=== PATIENT | female | born 1990 | race Caucasian/White ===

== ENCOUNTER → 2018-03-30 10:31 | Outpatient (CLI) | payer OTHER, BC, SELFPAY ==
[2018-03-30 10:43] LABS: Adenovirus F 40/41, stool Not Detected (NotDetected); Astrovirus Not Detected (NotDetected); Campylobacter Not Detected (NotDetected); Clostridium Difficile A/B, PCR Not Detected (NotDetected); Cyclospora Cayetanesis Not Detected (NotDetected); Entamoeba histolytica Not Detected (NotDetected); Enteroaggregative E coli Not Detected (NotDetected); Enteropathogenic E coli Not Detected (NotDetected); Enterotoxigenic E coli Not Detected (NotDetected); Giardia lamblia Not Detected (NotDetected); Norovirus Not Detected (NotDetected); Plesimonas Shigalloides, PCR Not Detected (NotDetected); Rotavirus A Not Detected (NotDetected); Salmonella, PCR Not Detected (NotDetected); Sapovirus Not Detected (NotDetected); Shiga-like toxin E coli Not Detected (NotDetected); Shigella Enterovasive E coli Not Detected (NotDetected); Vibrio Cholerae Not Detected (NotDetected); Vibrio, PCR Not Detected (NotDetected); Yersinia Entercolitica, PCR Not Detected (NotDetected)
[2018-03-30 15:33] LABS: Cryptosporidium Detected (NotDetected)
== END ==
PROVIDERS: Visit Provider Physician Assistant
DX: R19.7 Diarrhea, unspecified (principal)
CPT/HCPCS: 87507

== ENCOUNTER → 2019-03-11 12:35 | Outpatient (CLI) | payer OTHER, SELFPAY ==
--- NOTE | 2019-03-11 12:40 | MM_ITS ---
MM Dig mamm DX unilat RT CAD, US breast RT complete INDICATION: Palpable abnormality in right breast ORDERING PHYSICIAN: Nannette Gomez PATIENT AGE: 28 years COMPARISON: None TECHNIQUE: Diagnostic right mammogram along with right breast ultrasound FINDINGS: There is heterogeneous dense fibroglandular tissue. No malignant appearing mass or malignant. Microcalcification. There is asymmetry in the retroareolar region slightly lateral. This is not confirmed on the orthogonal view and may be due to overlapping fibroglandular tissue. Right breast ultrasound: No cystic or solid lesions evident. Specifically, no abnormalities apparent in the region of palpable concern IMPRESSION: No discrete nodule. No evidence of malignancy. Correlation with physical exam is needed in this patient with dense breast tissue. Any palpable nodule should be managed on a clinical basis. Recommend 6 month follow-up regarding asymmetric density in the retroareolar region BI-RADS Category: 3 Probably Benign Finding Short Term Follow-up RECOMMENDED FOLLOW-UP: 6M - 6 MONTH FOLLOW-UP (A letter has been sent to the patient regarding results of the study.)
== END ==
PROVIDERS: PCP Nurse Practitioner Family; Visit Provider Nurse Practitioner Family
DX: N63.12 Unspecified lump in the right breast, upper inner quadrant (principal)
CPT/HCPCS: 76641; 77065

== ENCOUNTER 2020-02-10 13:02 | Emergency (ER) | payer OTHER, SELFPAY ==
[2020-02-10 13:16] VITALS: BP 148/96; PULSE 74; RESP 16; TEMP 37.8; O2SAT 99; BMI 33.2
[2020-02-10 13:24] LABS: UTC Strep Screen (Rapid) Negative (Negative)
--- NOTE | 2020-02-10 13:42 | HMH.EDUTC ---
[facility] Clinical Impression: Viral syndrome Disposition: Home, Self-Care Condition on Discharge: Good Instructions: Sore Throat, Diarrhea, Loperamide, Preventing the Spread of Coronavirus Discharge Instructions Additional Instructions: *Monitor Temp, Over the counter Motrin or Tylenol as directed/as needed Tylenol every 4 hours and Motrin every 6 hours (as long as your family doctor has told you that you can take it) for fever or pain. and straight to ER if unable to lower temp less than 101.0 after medication given *Warm salt water gargles may help to soothe the throat *Throat Lozenges *Warm fluids *Sleep elevated *Humidifier/Vaporizer *Flonase 2 sprays in each nostril daily but be aware that it may take 2-3 days before you notice improvement You was given a card with instructions for quarantine go home and self quarantine until test results back and negative Your throat swab was sent for culture. Those results are typically sent to your primary care. Be sure to follow up in 2-3 days with your family doctor/primary care physician if no improvement so they can review those result and treat if necessary. If you don?t have a primary care doctor, I recommend you get one but in the mean time, you will have to return to a walk in clinic Follow up IMMEDIATELY for new or worsening symptoms or no Noticeable improvement over the next 48-72 hours. 911 for difficulty breathing or swallowing Referrals: Provider,Referral, [Primary Care Provider] - As needed Time of Disposition: 13:58 Medical Decision Making - Alvin Inquiry Pt receiving controlled substance: No Alvin was queried for this patient: No Vital Signs: 02/10/20 13:16 02/10/20 14:04 Temperature 100.0 F H 99.9 F H Temperature Source Oral Oral Pulse Rate 78 Pulse Rate [Right Brachial] 74 Respiratory Rate 16 16 Blood Pressure 138/70 Blood Pressure [Right Arm] 148/96 H Blood Pressure Mean [Right Arm] 113 Blood Pressure Source Automatic Cuff Blood Pressure Source [Right Arm] Automatic Cuff Blood Pressure Position Sitting Blood Pressure Position [Right Arm] Sitting 02 Sat by Pulse Oximetry 99 Oxygen Delivery Method Room Air Room Air - Lab Data Lab results reviewed: Yes: I reviewed the patient's lab results. Lab Results 02/10/20 13:11: Strep Scn Rapid Clinic Negative Orders (Tests/Meds): ORDERS Category Date Time Status SARS-CoV-2, DAVID Stat Lab 02/10/20 13:55 Received Strep Screen Confirmation Stat Micro 02/10/20 13:11 Received - Reevaluation(s) Time: 13:52 Reevaluation #1: Rapid strep negative patient requesting to be tested for Covid19 due to symptoms, Denies known exposure to COVID19 [facility] [place] - General Stated complaint: sore throat Time Seen by Provider: 02/10/20 13:42 Mode of Arrival: Ambulatory Source of Information: Patient Limitations: No Limitations Description of Symptoms (Recalled from Triage Doc. by RN): Pt c/o sore throat and diarrhea since Friday HEENT Symptoms (Recalled from RN notes): No Resp Symptoms (Recalled from RN notes): No Skin Symptoms (Recalled from RN notes): No MS Symptoms (Recalled from RN notes): No Functional Status (Recalled from RN notes): na - History of Present Illness Provider Complaint: Patient states that she has been having sore throat for about a week and thought it may have been from her GERD States that over the weekend she had some diarrhea and vomiting States that she has still been having some fever, body aches, sore throat and diarrhea States that no longer having vomiting so she wanted to get checked for strep and COVID19 - Related Data Home Medications Medication Instructions Recorded Confirmed No Known Home Medications 02/10/20 02/10/20 Allergies Allergy/AdvReac Type Severity Reaction Status Date / Time prednisone Allergy Severe steroid Verified 02/10/20 13:23 induced pychosis - Worker's Comp Is this a Worker's Comp case?: No HM
[2020-02-10 14:04] VITALS: BP 138/70; PULSE 78; RESP 16; TEMP 37.7; O2SAT 98
[2020-02-12 07:30] LABS: Covid-19 Nasal PCR Sendout Lex Not Detected
--- NOTE | 2020-02-12 07:53 | PC.NURSE ---
Pt notified of negative COVID-19 swab at this time
== END 2020-02-10 14:04 | disposition home or self-care (01) ==
PROVIDERS: Emergency Provider Nurse Practitioner
DX: B34.9 Viral infection, unspecified (principal); Z87.891 Personal history of nicotine dependence
CPT/HCPCS: 87880; 99201; 99202; U0004

== ENCOUNTER → 2020-02-12 10:14 | Outpatient (CLI) | payer OTHER, SELFPAY ==
[2020-02-12 10:33] LABS: Adenovirus F 40/41, stool Not Detected (NotDetected); Astrovirus Not Detected (NotDetected); Campylobacter Not Detected (NotDetected); Clostridium Difficile A/B, PCR Not Detected (NotDetected); Cryptosporidium Not Detected (NotDetected); Cyclospora Cayetanesis Not Detected (NotDetected); Entamoeba histolytica Not Detected (NotDetected); Enteroaggregative E coli Not Detected (NotDetected); Enteropathogenic E coli Not Detected (NotDetected); Enterotoxigenic E coli Not Detected (NotDetected); Giardia lamblia Not Detected (NotDetected); Norovirus Not Detected (NotDetected); Plesimonas Shigalloides, PCR Not Detected (NotDetected); Rotavirus A Not Detected (NotDetected); Salmonella, PCR Not Detected (NotDetected); Sapovirus Not Detected (NotDetected); Shiga-like toxin E coli Not Detected (NotDetected); Shigella Enterovasive E coli Not Detected (NotDetected); Vibrio Cholerae Not Detected (NotDetected); Vibrio, PCR Not Detected (NotDetected); Yersinia Entercolitica, PCR Not Detected (NotDetected)
== END ==
PROVIDERS: Visit Provider Nurse Practitioner
DX: R19.7 Diarrhea, unspecified (principal)
CPT/HCPCS: 87507

== ENCOUNTER → 2020-03-01 13:56 | Outpatient (CLI) | payer OTHER, SELFPAY ==
[2020-03-02 16:22] LABS: Giardia lamblia Ag, EIA Negative (Negative)
== END ==
PROVIDERS: Visit Provider Nurse Practitioner Family
DX: R19.7 Diarrhea, unspecified (principal)
CPT/HCPCS: 87205; 87324; 87493

== ENCOUNTER → 2020-03-08 13:26 | Outpatient (CLI) | payer OTHER, SELFPAY ==
--- NOTE | 2020-03-08 13:31 | US_ITS ---
PROCEDURE: US THYROID CLINICAL INDICATION: THYROMEGALY COMPARISON: No exams were available for comparison FINDINGS: Right lobe: 3.9 x 1.7 x 1.6 cm with homogeneous echogenicity Left lobe: 4.1 x 1.7 x 1.4 cm. There is a mostly cystic nodule in the upper pole at 12 x 7 mm Isthmus: Additional findings: IMPRESSION: TR 2 nodule on the left not suspicious. Otherwise negative thyroid ultrasound. Consider yearly follow-up Dictated by: Abran Santos MD 03/09/2020 17:52 Electronically signed by Abran Santos MD in [place] 03/09/2020 17:52
== END ==
PROVIDERS: PCP Nurse Practitioner Family; Visit Provider Nurse Practitioner Family
DX: E01.0 Iodine-deficiency related diffuse (endemic) goiter (principal)
CPT/HCPCS: 76536

== ENCOUNTER → 2021-04-27 12:36 | Outpatient (CLI) | payer OTHER, SELFPAY ==
[2021-04-27 13:02] LABS: Adenovirus,PCR Not Detected (NotDetected); Bordetella Pertussis Not Detected (NotDetected); Chlamydophila Pneumoniae, PCR Not Detected (NotDetected); Coronavirus 229E Not Detected (NotDetected); Coronavirus NL63 Not Detected (NotDetected); Coronavirus OC43 Not Detected (NotDetected); Coronovirus HKU1,PCR Not Detected (NotDetected); Human Metapneumovirus Not Detected (NotDetected); Influenza A, PCR Not Detected (NotDetected); Influenza AH1, 2009 Not Detected (NotDetected); Influenza AH1, PCR Not Detected (NotDetected); Influenza AH3,PCR Not Detected (NotDetected); Influenza B, PCR Not Detected (NotDetected); Mycoplasma Pneumoniae, PCR Not Detected (NotDetected); Parainfluenza 1, PCR Not Detected (NotDetected); Parainfluenza 2, PCR Not Detected (NotDetected); Parainfluenza 3, PCR Not Detected (NotDetected); Parainfluenza 4, PCR Not Detected (NotDetected); Respiratory Syncytial Virus Not Detected (NotDetected); Rhinovirus/Enterovirus Not Detected (NotDetected)
[2021-04-27 13:29] LABS: Coronavirus 19, PCR Detected (NotDetected)
== END ==
PROVIDERS: Visit Provider Nurse Practitioner Family
DX: Z20.822 Contact with and (suspected) exposure to COVID-19 (principal); U07.1 COVID-19
CPT/HCPCS: 87486; 87581; 87633; 87798; U0003

== ENCOUNTER → 2021-07-18 14:27 | Outpatient (CLI) | payer OTHER, SELFPAY ==
--- NOTE | 2021-07-18 14:33 | US_ITS ---
PROCEDURE: US THYROID CLINICAL INDICATION: THYROMEGALY COMPARISON: US US THYROID from 03/08/2020 FINDINGS: Right lobe: Normal echotexture and vascularity, measuring 1.6 x 3.9 x 1.7 cm. No nodules. Left lobe: Normal echotexture and vascularity, measuring 1.5 x 4.3 x 1.7 cm. Single spongiform nodule measuring 7 millimeters. Isthmus: Normal echotexture. Additional findings: None IMPRESSION: According to the ACR thyroid Imaging reporting and data System (ACR TI-RADS), predominantly spongiform nodules are inherently benign. TR1 = benign. Dictated by: Delicia Morgan MD 07/18/2021 16:45 Delicia Morgan MD in [place] 07/18/2021 16:45
== END ==
PROVIDERS: PCP Nurse Practitioner Family; Visit Provider Nurse Practitioner Family
DX: E01.0 Iodine-deficiency related diffuse (endemic) goiter (principal)
CPT/HCPCS: 76536

== ENCOUNTER → 2022-01-10 07:54 | Outpatient (CLI) | payer OTHER, SELFPAY ==
--- NOTE | 2022-01-10 07:57 | US_ITS ---
FINAL REPORT CLINICAL HISTORY: pulse in abd FINDINGS: Sonographic images were obtained of the abdominal aorta. The abdominal aorta measures up to 1.2 cm in greatest dimensions. The common iliac arteries are within normal limits. IMPRESSION: No evidence of abdominal aortic aneurysm. Reviewed, Interpreted and Dictated by Giuliano Jay III, MD Transcribed by Carlton Bearden Authenticated by Giuliano Jay III, MD on 01/10/2022 10:26:38 AM [facility]
== END ==
LOC: RAD 07:55
PROVIDERS: PCP Nurse Practitioner Family; Visit Provider Physician Assistant
DX: R09.89 Other specified symptoms and signs involving the circulatory and respiratory systems (principal)
CPT/HCPCS: 76705

== ENCOUNTER → 2022-02-05 15:47 | Outpatient (CLI) | payer OTHER, SELFPAY | PROVIDERS: PCP Physician Assistant; Visit Provider Physician Assistant | DX: J02.9 Acute pharyngitis, unspecified (principal) | CPT/HCPCS: 87070 ==

== ENCOUNTER → 2022-03-27 13:58 | Outpatient (CLI) | payer OTHER, SELFPAY | LOC: LAB.DROPOF 13:58 | PROVIDERS: PCP Physician Assistant; Visit Provider Physician Assistant | DX: R82.90 Unspecified abnormal findings in urine (principal); B96.20 Unspecified Escherichia coli [E. coli] as the cause of diseases classified elsewhere | CPT/HCPCS: 87086; 87088; 87186 ==

== ENCOUNTER → 2022-08-19 11:51 | Outpatient (CLI) | payer OTHER, SELFPAY ==
[2022-08-19 13:50] LABS: Basophils # 0.1 K/mm3 (0-0.2); Basophils % 0.9 % (0.1-2.0); Eosinophils # 0.2 K/mm3 (0.0-0.4); Eosinophils % 3.6 % (0.1-12.0); Hematocrit 42.7 % (37.0-47.0); Hemoglobin 13.7 g/dL (12.2-16.2); Lymphocytes # 1.5 K/mm3 (0.7-4.5); Lymphocytes % 24.4 % (10-50); Mean Corpuscular Hemoglobin 30.7 pg (27.0-31.2); Mean Corpuscular Volume 96.1 fl (81-99); Mean Platelet Volume 8.8 fl (7.4-10.4); Monocytes # 0.3 K/mm3 (0.1-1.0); Monocytes % 4.2 % (1.7-9.3); Neutrophils # 4.1 K/mm3 (1.8-7.8); Neutrophils % 66.8 % (37.0-80.0); Platelet Count 343 K/mm3 (142-424); Red Blood Count 4.45 M/mm3 (4.20-5.40); Red Cell Distribution Width 12.8 % (11.5-17.5); White Blood Count 6.2 K/mm3 (4.8-10.8)
[2022-08-19 13:51] LABS: Alanine Aminotransferase 18 U/L (12-78); Albumin Level 4.9 g/dl (3.5-5.0); Albumin/Globulin Ratio 2.1 (1.1-1.8); Alkaline Phosphatase 114 U/L (38-126); Anion Gap 19.2 mEq/L (5-15); Aspartate Amino Transferase 29 U/L (14-36); Bilirubin,Total 0.3 mg/dl (0.2-1.3); Blood Urea Nitrogen 22 mg/dl (7-17); Calcium 9.9 mg/dl (8.4-10.2); Carbon Dioxide 27 mmol/L (22.0-30.0); Chloride 95 mmol/L (98-107); Chol/HDL Ratio 2.9 (1-3.5); Cholesterol 160 mg/dl (140-200); Estimated Glomerular Filt Rate 98 ml/min (>60); GFR (African American) 119 ML/MIN (>60); Globulin 2.3 g/dL (1.3-3.2); Glucose 80 mg/dl (74-100); HDL Cholesterol 56 mg/dl (40-60); Potassium 4.2 mmoL/L (3.5-5.1); Sodium 137 mmol/L (136-145); Total Protein,Serum 7.2 g/dl (6.3-8.2); Triglycerides 63 mg/dl (30-150); VLDL Cholesterol 13 mg/dL (0-40)
[2022-08-19 14:02] LABS: Monoscreen (Rapid) Negative (Negative)
[2022-08-19 14:03] LABS: C-Reactive Protein 0.5 mg/L (0-4); Direct LDL Cholesterol 91.42 mg/dL (100-129)
[2022-08-19 14:20] LABS: Erythrocyte Sedimentation Rate 7 mm/hr (0-20)
[2022-08-19 14:23] LABS: Thyroid Stimulating Hormone 1.64 uIU/mL (0.465-4.68)
[2022-08-19 14:43] LABS: Vitamin B12 500 pg/mL (239-931)
[2022-08-20 11:14] LABS: RA Latex Turbid. <10.0 IU/mL (<14.0)
[2022-08-20 14:19] LABS: Anti-Centromere B Antibodies <0.2 AI (0.0-0.9); Anti-DNA (DS) Ab Qn 1 IU/mL (0-9); Anti-Jo-1 <0.2 AI (0.0-0.9); Anti-Smith Antibody <0.2 AI (0.0-0.9); Antichromatin Antibodies <0.2 AI (0.0-0.9); Antiscleroderma-70 Antibodies <0.2 AI (0.0-0.9); EBV Ab VCA, IgG >600.0 U/mL (0.0-17.9); EBV Ab VCA, IgM <36.0 U/mL (0.0-35.9); EBV Nuclear Antigen Ab, IgG >600.0 U/mL (0.0-17.9); RNP Antibodies 0.4 AI (0.0-0.9); Sjogren's Anti-SS-A <0.2 AI (0.0-0.9); Sjogren's Anti-SS-B <0.2 AI (0.0-0.9)
[2022-08-21 23:13] LABS: Anti-Cyclic Citrullinated Pept 4 units (0-19)
== END ==
LOC: LAB.DROPOF 13:44
PROVIDERS: PCP Physician Assistant; Visit Provider Physician Assistant
DX: R59.1 Generalized enlarged lymph nodes (principal)
CPT/HCPCS: 80053; 80061; 82306; 82607; 84443; 85025; 85651; 86140; 86200; 86225; 86235; 86318; 86431; 86664; 86665

== ENCOUNTER → 2022-08-27 07:30 | Outpatient (CLI) | payer OTHER, SELFPAY ==
--- NOTE | 2022-08-27 07:30 | CT_ITS ---
FINAL REPORT TECHNIQUE: Thin section axial CT images with coronal and sagittal reformats were performed through the neck. This study was performed with techniques to keep radiation doses as low as reasonably achievable (ALARA). Individualized dose reduction techniques using automated exposure control or adjustment of mA and/or kV according to the patient's size were employed. CLINICAL HISTORY: Lymph node enlargement recurrent strep throat FINDINGS: The nasopharynx, oropharynx, hypopharynx and larynx are unremarkable. The thyroid is unremarkable. There are small bilateral neck lymph nodes. No neck mass or adenopathy is identified. IMPRESSION: Small bilateral neck lymph nodes, otherwise unremarkable exam. Reviewed, Interpreted and Dictated by Giuliano Jay III, MD Transcribed by Chelsi Espinoza Authenticated and [facility]
== END ==
LOC: RAD 07:30
PROVIDERS: PCP Physician Assistant; Visit Provider Physician Assistant
DX: R59.9 Enlarged lymph nodes, unspecified (principal)
CPT/HCPCS: 70490

== ENCOUNTER → 2023-06-30 13:59 | Outpatient (CLI) | payer OTHER, SELFPAY ==
[2023-06-30 10:36] LABS: Adenovirus F 40/41, stool Not Detected (NotDetected); Astrovirus Not Detected (NotDetected); Campylobacter Not Detected (NotDetected); Cryptosporidium Not Detected (NotDetected); Cyclospora Cayetanesis Not Detected (NotDetected); Entamoeba histolytica Not Detected (NotDetected); Enteroaggregative E coli Not Detected (NotDetected); Enteropathogenic E coli Not Detected (NotDetected); Enterotoxigenic E coli Not Detected (NotDetected); Giardia lamblia Not Detected (NotDetected); Norovirus Not Detected (NotDetected); Plesimonas Shigalloides, PCR Not Detected (NotDetected); Rotavirus A Not Detected (NotDetected); Salmonella, PCR Not Detected (NotDetected); Sapovirus Not Detected (NotDetected); Shiga-like toxin E coli Not Detected (NotDetected); Shigella Enterovasive E coli Not Detected (NotDetected); Vibrio Cholerae Not Detected (NotDetected); Vibrio, PCR Not Detected (NotDetected); Yersinia Entercolitica, PCR Not Detected (NotDetected)
[2023-07-02 10:09] LABS: Clostridium Difficile A/B, PCR Detected (NotDetected)
== END ==
PROVIDERS: PCP Physician Assistant; Visit Provider Physician Assistant
DX: R19.7 Diarrhea, unspecified (principal); A04.72 Enterocolitis due to Clostridium difficile, not specified as recurrent
CPT/HCPCS: 87507

== ENCOUNTER 2023-07-01 12:29 | Outpatient (CLI) | payer OTHER, SELFPAY ==
[2023-07-01 12:49] VITALS: BP 126/83; PULSE 80; RESP 16; TEMP 37.6; O2SAT 98
[2023-07-01 13:49] VITALS: BP 129/73; PULSE 74; RESP 16; O2SAT 99
[2023-07-01 14:49] VITALS: BP 130/75; PULSE 78; RESP 18; TEMP 37.5; O2SAT 100
[2023-07-01 15:49] VITALS: BP 130/82; PULSE 77; RESP 18; TEMP 37.6; O2SAT 100
[2023-07-01 16:30] VITALS: BP 132/80; PULSE 79; RESP 16; TEMP 37.6; O2SAT 99
== END 2023-07-01 16:30 | disposition home or self-care (01) ==
LOC: INF 12:30
PROVIDERS: PCP Physician Assistant; Visit Provider Emergency Medicine
DX: I10 Essential (primary) hypertension (principal); R19.7 Diarrhea, unspecified; E86.0 Dehydration
CPT/HCPCS: 96360; 96361; 96375; J2405

== ENCOUNTER → 2023-07-31 23:00 | Outpatient (CLI) | payer OTHER, SELFPAY ==
[2023-07-31 12:44] LABS: Basophils % 0.5 % (0.1-2.0); Eosinophils # 0.2 K/mm3 (0.0-0.4); Eosinophils % 4.1 % (0.1-12.0); Hematocrit 44.2 % (37.0-47.0); Hemoglobin 15.1 g/dL (12.2-16.2); Lymphocytes % 25.2 % (10-50); Mean Corpuscular HGB Conc 34.1 g/dL (31.8-35.4); Mean Corpuscular Hemoglobin 32.1 pg (27.0-31.2); Mean Platelet Volume 9.3 fl (7.4-10.4); Monocytes # 0.2 K/mm3 (0.1-1.0); Monocytes % 4.7 % (1.7-9.3); Neutrophils # 2.7 K/mm3 (1.8-7.8); Neutrophils % 65.6 % (37.0-80.0); Platelet Count 352 K/mm3 (142-424); Red Cell Distribution Width 13.1 % (11.5-17.5); White Blood Count 4.1 K/mm3 (4.8-10.8)
[2023-07-31 12:50] LABS: Alanine Aminotransferase 16 U/L (12-78); Albumin Level 5.2 g/dl (3.5-5.0); Albumin/Globulin Ratio 1.7 (1.1-1.8); Alkaline Phosphatase 79 U/L (38-126); Anion Gap 18.1 mEq/L (5-15); Aspartate Amino Transferase 33 U/L (14-36); Bilirubin,Total 0.6 mg/dl (0.2-1.3); Blood Urea Nitrogen 6 mg/dl (7-17); Calcium 10.2 mg/dl (8.4-10.2); Carbon Dioxide 26 mmol/L (22.0-30.0); Chloride 99 mmol/L (98-107); Chol/HDL Ratio 3.4 (1-3.5); Cholesterol 164 mg/dl (140-200); Estimated Glomerular Filt Rate 117 ml/min (>60); GFR (African American) 141 ML/MIN (>60); Glucose 80 mg/dl (74-100); HDL Cholesterol 48 mg/dl (40-60); Potassium 5.1 mmoL/L (3.5-5.1); Sodium 138 mmol/L (136-145); Total Protein,Serum 8.2 g/dl (6.3-8.2); Triglycerides 38 mg/dl (30-150); VLDL Cholesterol 8 mg/dL (0-40)
[2023-07-31 13:01] LABS: Direct LDL Cholesterol 99.01 mg/dL (100-129)
[2023-07-31 13:05] LABS: 25-OH Vitamin D, Total 36.2 ng/mL (30-100)
[2023-07-31 13:20] LABS: Thyroid Stimulating Hormone 1.41 uIU/mL (0.465-4.68)
[2023-07-31 13:39] LABS: Vitamin B12 499 pg/mL (239-931)
[2023-08-04 13:31] LABS: Anti-DNA (DS) Ab Qn <1 IU/mL (0-9)
== END ==
PROVIDERS: PCP Physician Assistant; Visit Provider Physician Assistant
DX: R59.1 Generalized enlarged lymph nodes (principal); B34.9 Viral infection, unspecified; Z79.899 Other long term (current) drug therapy
CPT/HCPCS: 80053; 80061; 82306; 82607; 84443; 85025; 86225

== ENCOUNTER 2023-10-10 08:15 | Outpatient (CLI) | payer OTHER, SELFPAY ==
--- OUTSIDE RECORDS SUMMARY | 2023-10-13 08:17 | XMS_ITS | Clinical Summary ---
Author Name Unknown Address [address] [place] [address] [place] [address] Phone Organization [facility] Address [address] [facility] [address] [place] [address] Phone Care Team Providers Care Voice Data Communications Engineer Name Role Phone Poppy CARRENO, Giuliano Clifton [phone] [ ] Conditions or Problems Problem Name Problem Code Onset Date Status Entry Date Provider Comment Standard Description Annotate Diarrhea 04969227 (SNOMED CT) Active Giuliano Mcwilliams MD Diarrhea C. 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 Allergies, Adverse Reactions, Alerts Allergy Name Reaction Description Start Date Severity Statu s Provider PREDNISONE Moderate Active Giuliano Mcwilliams MD Results Date Name Value Unit Range Flag Description Office Visit: Office Visit:dallin jeffrey 6 SMOK STATUS Never smoker Toba client account assistant smoking status MEDS REVIEW Done Documenta tion of current medications (procedure) Plan of Care Type Date Detail Appointment 09:45 AM Giuliano Hurley se, MD, [facility], [address], [place], [address], Procedures No information available. Vital Signs Date Name Value Unit Description BMI (Body Mass Index) 0.20 kg/m2 Bod y Mass Index (Ratio) Body Temperature 97.8 [degF] temperat ure E&M BP Diastolic 80 mm[Hg] blood pressu re, diastolic BP Systolic 120 mm[Hg] blood pressur e, systolic Heart Rate 68 /min pulse rate Height 660 [in_us] height E&M Respiratory Rate 16 /min respirat ory rate E&M Weight Measured 124.4 [lb_av] weight E& M Immunizations No information available. Advance Directives Directive Description Start Date NO ADVANCED MEDICAL DIRECTIVES AT THIS T MEHUL
--- OUTSIDE RECORDS SUMMARY | 2023-10-13 08:17 | XMS_ITS ---
Author Name Unknown Address [address] [place] [address] [place] [address] Phone Organization [facility] Address [address] [place] [address] [place] [address] Phone Care Team Providers Care Bevel Polisher Name Role Phone Poppy CARRENO, Giuliano Crabtree Unavailable [ ] Conditions or Problems No information available. Medications No information available. Medications Administered No information available. Allergies, Adverse Reactions, Alerts No information available. Results Date Name Value Unit Range Flag Description Office Visit: Office Visit:r rachele 6 SMOK STATUS Never smoker Toba accounts payables clerk smoking status MEDS REVIEW Done Documenta tion of current medications (procedure) Plan of Care Type Date Detail Appointment 09:45 AM Giuliano Hurley se, MD, [address] [place] [address], [facility] [address] [place] [address], [id number], Procedures No information available. Vital Signs Date [...] M Immunizations No information available. Advance Directives No information available.
--- OUTSIDE RECORDS SUMMARY | 2023-10-13 08:17 | XMS_ITS ---
Author Name Unknown Address [address] [place] [address] [place] [address] Phone Organization [facility] Address [address] [facility] [address] [place] [address] Phone Care Team Providers Care Corset Maker Name Role Phone Poppy CARRENO, Giuliano Clifton [ ] Conditions or Problems Problem Name Problem Code Onset Date Status Entry Date Provider Comment Standard Description Annotate Diarrhea [id number] (SNOMED CT) Active Giuliano Mcwilliams MD Diarrhea Medications Medication Instructions Start Date Stop Date Generic Name NDC Provider VYVANSE 50 MG CAPS PO lisdexamfetamine [id number] Alexa Navjot DIFICID 200 MG TABS PO fidaxomicin [id number] Alexa Navjot Medications Administered No information available. Allergies, Adverse Reactions, Alerts Allergy Name Reaction Description Start Date Severity Statu s Provider PREDNISONE Moderate Active Giuliano Mcwilliams MD Results Date Name Value Unit Range Flag Description Office Visit: Office Visit: rm 9 IV THERAPY NURSE SMOK STATUS Never smoker Toba tax accounting assistant smoking status MEDS REVIEW Done Documenta tion of current medications (procedure) Plan of Care Type Date Detail Appointment 09:45 AM Giuliano Hurley se, MD, [facility], [address], [place], [address], Procedures No information available. Vital Signs Date Name Value Unit Description BMI (Body Mass Index) 24.02 kg/m2 Bod y Mass Index (Ratio) Body Temperature 98.2 [degF] temperat ure E&M BP Diastolic 68 mm[Hg] blood pressu re, diastolic BP Systolic 108 mm[Hg] blood pressur e, systolic Heart Rate 80 /min pulse rate Height 60 [in_us] height E&M Respiratory Rate 16 /min respirat ory rate E&M Weight Measured 123 [lb_av] weight E& M Immunizations No information available. Advance Directives Directive Description Start Date NO ADVANCED MEDICAL DIRECTIVES AT THIS T MEHUL
== END 2023-10-10 23:59 ==
LOC: LAB.DROPOF 10-13 08:16
PROVIDERS: PCP Physician Assistant; Visit Provider Physician Assistant
DX: N89.8 Other specified noninflammatory disorders of vagina (principal)
CPT/HCPCS: 87210

== ENCOUNTER 2024-01-06 07:28 | Outpatient (CLI) | payer OTHER, SELFPAY ==
--- NOTE | 2024-01-06 07:32 | CT_ITS ---
FINAL REPORT TECHNIQUE: Thin section axial CT images with coronal and sagittal reformats were performed through the neck. This study was performed with techniques to keep radiation doses as low as reasonably achievable (ALARA). Individualized dose reduction techniques using automated exposure control or adjustment of mA and/or kV according to the patient's size were employed. CLINICAL HISTORY: swollen lymphnodes COMPARISON: 08/27/2022 FINDINGS: CT SOFT TISSUES NECK: CT examination of the soft tissues of the neck was performed, including sagittal and coronal reformatted images. There are small scattered submandibular and cervical lymph nodes present. There is no evidence of a dominant mass or localized inflammatory change. The nasopharynx is unremarkable in appearance. The oropharynx, hypopharynx and larynx are also unremarkable in appearance. No focal fluid collection is seen to suggest an abscess. IMPRESSION: Scattered submandibular and cervical lymph nodes are present without evidence of a dominant mass or localized inflammatory change. Reviewed, Interpreted and Dictated by Perico Wallace MD Transcribed by Mariposa Andino Authenticated and [facility]
== END 2024-01-06 23:59 | disposition home or self-care (01) ==
LOC: RAD 07:29
PROVIDERS: PCP Physician Assistant; Visit Provider Physician Assistant
DX: R59.9 Enlarged lymph nodes, unspecified (principal); S03.00XA Dislocation of jaw, unspecified side, initial encounter; M26.609 Unspecified temporomandibular joint disorder, unspecified side
CPT/HCPCS: 70490